=== PATIENT | male | born 1960 | race Caucasian/White ===

== ENCOUNTER 2017-12-22 23:15 | Observation (INO) | payer BC, OTHER ==
--- NOTE | 2017-12-22 23:26 | PDOC ---
History of Present Illness - General Stated Complaint: NUMBNESS/TINGLING SENSATION Time Seen by Provider: 12/22/17 23:25 - History of Present Illness Initial Comments: Eb Del Rio is a 57yo man with a PMH of DM, HTN, HLD, on lisinopril who presents today with acute onset of tongue and lip swelling. He reports that he did not notice any swelling when he went to bed, but he woke up at 11pm with swelling that prevented him from speaking normally. He denies any difficulty swallowing or breathing, though his and daughter both state that his neck appears swollen. He has been taking lisinopril for about 4 years without any difficulty. He recently started taking labetolol about 2 weeks ago but has no other new medications. He did not eat anything unusual today, and has not used any new soaps, lotions, detergents, or other products. He is allergic to bee stings but denies any recent stings. Past History - Past Medical History Allergies/Adverse Reactions: Allergies Allergy/AdvReac Type Severity Reaction Status Date / Time No Known Allergies Allergy Verified 12/22/17 23:30 Home Medications: Ambulatory Orders Atorvastatin Calcium 40 mg PO DAILY 09/20/11 Clonidine HCl 0.2 mg PO BID 09/20/11 Furosemide 20 mg PO DAILY PRN 12/23/17 Glipizide 5 mg PO BID 12/23/17 Labetalol HCl 300 mg PO BID MDD 600 12/23/17 Lisinopril 40 mg PO DAILY 12/23/17 Meloxicam 15 mg PO DAILY 12/23/17 Metformin HCl 850 mg PO BID 12/23/17 Metoprolol Succinate 200 mg PO DAILY 12/23/17 Sitagliptin Phosphate [Januvia] 100 mg PO DAILY 12/23/17 Cardiac Disorders: (cardiomyopathy) Diabetes: Yes HTN: Yes Hypercholesterolemia: Yes - Suicide/Smoking/Psychosocial Hx Smoking Status: No Smoking History: Unknown if ever smoked Number of Cigarettes Smoked Daily: 0 Hx Alcohol Use: No Review of Systems - Review of Systems Comments:: General: No fevers, no chills, no weight or appetite change, no malaise HEENT: See HPI CV: No chest pain, no palpitations, no LE edema Pulm: No SOB, no cough, no wheezing GI: No nausea or vomiting, no change in bowel habits, no melena : No frequency, no urgency, no dysuria Musc: No back pain, no joint swelling, no recent injury Skin: No rash, no lesions, no erythema Endo: No excessive thirst, no heat/cold intolerance Heme: No unusual bruising or bleeding, no swollen glands Neuro: No syncope, no numbness/tingling, no focal weakness Vasc: No claudication Psych: No recent change in mood, no SI or HI *Physical Exam - Physical Exam Comments: General: Comfortable, no acute distress HEENT: PERRL, EOMI, MMM. Voice muffled. Visible swelling to lower lips and tongue. No apparent difficulty with upper airway. Cards: RRR, no murmur appreciated Pulm: Comfortable on room air, clear to auscultation bilaterally Abd: Soft, nontender, nondistended Ext: Atraumatic. No LE edema. ROM intact. Strength 5/5 and equal bilaterally Vasc: Extremities WWP. Palpable radial and pedal pulses bilaterally Neuro: A&Ox3, CN grossly intact, normal speech, motor/sensory grossly intact and symmetric Psych: Mood appropriate to situation ED Treatment Course - LABORATORY CBC & Chemistry Diagram: 12/23/17 00:26 12/23/17 00:26 Medical Decision Making - Medical Decision Making 12/23/17 00:33 Eb Del Rio is a 57yo man with a PMH of HTN, HLD, DM who presents with acute onset of angioedema involving the tongue, lower lip, and likely neck. He does take lisinopril. No known exposures to any allergens today. - Epinephrine, solumedrol, famotidine, diphenhydramine ordered - CBC, BMP, coags, EKG, CXR ordered for admission - Will need admit to ICU for monitoring 12/23/17 01:38 - CBC, BMP, INR unremarkable - Speech improved slightly after receiving meds; less mumbling, easier to understand. No visible reduction in swelling. - Toradol and lidocaine patch given for chronic BLE and low back pain. Pt reports using TENS unit at home, but does not have available. - Spoke to medicine resident for sign out. Waiting for call back from ICU 12/23/17 02:15 - Discussed with ICU, OK to admit for monitoring of airway 12/23/17 04:45 - Patient seen by gen violet and ICU. Downgraded to telemetry observation per medicine team. Seen and discussed with Dr Tejada. *DC/Admit/Observation/Transfer Diagnosis at time of Disposition: Angioedema Qualifiers: Encounter type: initial encounter Qualified Code(s): T78.3XXA - Angioneurotic edema, initial encounter - Discharge Dispostion Condition at time of disposition: Fair Decision to Admit order: Yes - Referrals - Patient Instructions - Post Discharge Activity
[2017-12-22] MEDS ORDERED: FAMOTIDINE 20 MG/50 ML IVPB 20 MG/50 ML MG IVPB ONE (23:45)
--- NOTE | 2017-12-22 23:49 | PDOC ---
Attending Attestation - [facility] HPI: 12/23/17 02:31 The patient is a 57 year old male with a significant PMH of diabetes, hypertension hypercholesterolemia and cardiomyopathy who presents to the emergency department with tongue and lip swelling. The patient denies any new food or medications. She states that she has been on labetalol for about 1 month and has been on ruth inhibitors for several years. The patient denies any chest pain or shortness of breath. She denies any other symptoms. She denies any fever, chills, nausea, vomit, diarrhea, constipation or urinary symptoms. Shec denies any headache, dizziness, vision change, numbness, weakness, or tingling sensation. The patient denies any other complaints. PCP: Dr. Mccann - Physicial Exam PE: 12/23/17 02:31 GENERAL: Well developed, well nourished. Awake and alert. No acute distress. HEENT:(+)moderate swelling to lower lip , more prominent on right side. Sides of tongue swollen. Floor of mouth not involved . Normocephalic, atraumatic. PERRLA, EOMI. No conjunctival pallor. Sclera are non- icteric. Moist mucous membranes. Oropharynx is clear. NECK: Supple. Full ROM. No JVD. Carotid pulses 2+ and symmetric, without bruits. No thyromegaly. No lymphadenopathy. CARDIOVASCULAR: Regular rate and rhythm. No murmurs, rubs, or gallops. Distal pulses are 2+ and symmetric. PULMONARY: No evidence of respiratory distress. Lungs clear to auscultation bilaterally. No wheezing, rales or rhonchi. ABDOMINAL: Soft. Non-tender. Non-distended. No rebound or guarding. No organomegaly. Normoactive bowel sounds. MUSCULOSKELETAL Normal range of motion at all joints. No bony deformities or tenderness. No CVA tenderness. EXTREMITIES: No cyanosis. No clubbing. No edema. No calf tenderness. SKIN: Warm and dry. Normal capillary refill. No rashes. No jaundice. NEUROLOGICAL: Alert, awake, appropriate. Cranial nerves 2-12 intact. No deficits to light touch and temperature in face, upper extremities and lower extremities. No motor deficits in the in face, upper extremities and lower extremities. Normoreflexic in the upper and lower extremities. Normal speech. Toes are down- going bilaterally. Gait is normal without ataxia. PSYCHIATRIC: Cooperative. Good eye contact. Appropriate mood and affect. Documentation prepared by Orestes Dorman, acting as medical technologist microbiology for Jorge Alberto Tejada DO. <Orestes Dorman - Last Filed: 12/23/17 02:31> - Resident Resident Name: Geraldine Alicia - ED Attending Attestation I have performed the following: I have examined & evaluated the patient, The case was reviewed & discussed with the resident, I agree w/resident's findings & plan, Exceptions are as noted - Medical Decision Making 12/26/17 19:28 Pt was admitted for further evaluation and care <Jorge Alberto Tejada - Last Filed: 12/26/17 19:29>
[2017-12-22] MEDS ORDERED: methylPREDNISolone NA SUCC 125 MG/2 ML VIAL IVPB ONE (23:50)
[2017-12-22] MEDS ORDERED: EPINEPHrine 1:1,000 0.3 MG/0.3 ML SYR IM ONE (23:50)
[2017-12-23] MEDS ORDERED: FAMOTIDINE 20 MG/50 ML IVPB 20 MG/50 ML MG IVPB ONE (00:08)
[2017-12-23] MEDS ORDERED: methylPREDNISolone NA SUCC 40 MG/1 ML VIAL IVPUSH ONE (00:08)
[2017-12-23] MEDS ORDERED: methylPREDNISolone NA SUCC 125 MG/2 ML VIAL ONE (00:08)
[2017-12-23] MEDS ORDERED: EPINEPHrine 1:1,000 0.3 MG/0.3 ML SYR IM ONE (00:09)
[2017-12-23] MEDS ORDERED: EPINEPHrine/PF 1 MG/1 ML (1:1,000) AMPULE ONE (00:12)
[2017-12-23 00:44] LABS: BASO % 0.5 % (0-2.0); EOS % 1.5 % (0-4.5); HEMATOCRIT 43.3 % (35.4-49); HEMOGLOBIN 14.4 GM/dL (11.7-16.9); LYMPH % 18.1 % (8-40); MCH 28.3 pg (25.7-33.7); MCHC 33.3 g/dl (32.0-35.9); MEAN CELL VOLUME 85.2 fl (80-96); MEAN PLT VOLUME 9.3 fl (7.5-11.1); MONO % 6.3 % (3.8-10.2); NEUT % 73.6 % (42.8-82.8); PLATELET COUNT 197 K/MM3 (134-434); RBC 5.08 M/mm3 (4.00-5.60); RDW 14.6 % (11.9-15.9); WHITE BLOOD COUNT 8.2 K/mm3 (4.0-10.0)
[2017-12-23 01:08] LABS: ANION GAP 10 (8-16); BLOOD UREA NITROGEN 20 mg/dL (7-18); CALCIUM 8.8 mg/dL (8.5-10.1); CHLORIDE 104 mmol/L (98-107); CO2 25 mmol/L (21-32); CREATININE 1.2 mg/dL (0.7-1.3); GLUCOSE,RANDOM 124 mg/dL (74-106); POTASSIUM 4.3 mmol/L (3.5-5.1); SODIUM 139 mmol/L (136-145)
[2017-12-23 01:10] LABS: INR 1.1 (0.83-1.09); PROTHROMBIN TIME (PATIENT) 12.4 SEC (9.7-13.0)
[2017-12-23] MEDS ORDERED: KETOROLAC TROMETHAMINE 30 MG/1 ML VIAL IVPUSH ONE (01:14)
[2017-12-23] MEDS ORDERED: LIDOCAINE 5% TOPICAL PATCH TP ONE (01:15)
[2017-12-23] MEDS ORDERED: LIDOCAINE 5% TOPICAL PATCH ONE (01:25)
[2017-12-23] MEDS ORDERED: KETOROLAC TROMETHAMINE 30 MG/1 ML VIAL ONE (01:25)
--- NOTE | 2017-12-23 02:36 | HP ---
CHIEF COMPLAINT:swelling of tongue and lower lip PCP: HISTORY OF PRESENT ILLNESS: Patient is a 57 year old male with past medical history of DM, HTN, HLD, Thyroid CA (s/p partial thyroidectomy), presented with sudden onset severe swelling of the tongue and lower lip. Few hours ago, patient suddenly woke up from sleep due to generalized itching, and was noted to have swelling of the lower lip and tongue, accompanied by dysphagia and difficulty talking. In addition, the and daughter noted patient to have swelling of the neck. They immediately went to the ED where patient was managed with Diphenhydramine, Epinephrine, Famotidine and Solu-medrol. On interview, patient has vastly improved with less swelling of the lip and tongue, with no dysphagia and no difficulty talking. Patient denies SOB, chest, palpitations, abdominal pain. ER course was notable for: (1)Diphenhydramine, Epinephrine, Lidocaine patch, Famotidine, Solu-medrol given (2) (3) Recent Travel:denies any recent travel PAST MEDICAL HISTORY: DM HTN HLD Thyroid cancer (2005) PAST SURGICAL HISTORY: Partial thyroidectomy (2005) Pacemaker (2011) Open heart surgery for HOCM Lung surgery (2011) Aortic aneurysm repair (2003) Spinal surgery (1993, 2016) Social History: Smoking:previously 2 PPD x 44 years (quit 3 years ago) Alcohol:occasional EtOH drinker Drugs: denies illicit drug use Family History: Allergies No Known Allergies Allergy (Verified 12/22/17 23:30) HOME MEDICATIONS: Home Medications Medication Instructions Recorded Atorvastatin Calcium 40 mg PO DAILY 09/20/11 Clonidine HCl 0.2 mg PO BID 09/20/11 Disopyramide [Norpace] 150 mg PO BID 09/20/11 Metformin HCl [Metformin HCl ER] 500 mg PO BID 09/20/11 Metoprolol Succinate 50 mg PO AM 09/20/11 Metoprolol Succinate [Toprol XL] 25 mg PO HS 09/20/11 Pyridostigmine [Mestinon] 180 mg PO DAILY 09/20/11 Verapamil HCl ER [Calan Sr] 240 mg PO DAILY 09/20/11 REVIEW OF SYSTEMS CONSTITUTIONAL: Absent: fever, chills, diaphoresis, generalized weakness, malaise, loss of appetite, weight change HEENT: +difficulty swallowing, +tongue swelling Absent: rhinorrhea, nasal congestion, throat pain, throat swelling, ear pain, eye pain, visual changes CARDIOVASCULAR: Absent: chest pain, syncope, palpitations, irregular heart rate, lightheadedness , peripheral edema RESPIRATORY: Absent: cough, shortness of breath, dyspnea with exertion, orthopnea, wheezing, stridor, hemoptysis GASTROINTESTINAL: Absent: abdominal pain, abdominal distension, nausea, vomiting, diarrhea, constipation, melena, hematochezia GENITOURINARY: Absent: dysuria, frequency, urgency, hesitancy, hematuria, flank pain, genital pain MUSCULOSKELETAL: Absent: myalgia, arthralgia, joint swelling, back pain, neck pain SKIN: Absent: rash, itching, pallor HEMATOLOGIC/IMMUNOLOGIC: Absent: easy bleeding, easy bruising, lymphadenopathy, frequent infections ENDOCRINE: Absent: unexplained weight gain, unexplained weight loss, heat intolerance, cold intolerance NEUROLOGIC: Absent: headache, focal weakness or paresthesias, dizziness, unsteady gait, seizure, mental status changes, bladder or bowel incontinence PSYCHIATRIC: Absent: anxiety, depression, suicidal or homicidal ideation, hallucinations. PHYSICAL EXAMINATION Vital Signs - 24 hr 12/22/17 23:20 Temperature 98.9 F Pulse Rate 89 Respiratory 23 Rate Blood Pressure 149/96 O2 Sat by Pulse 100 Oximetry (%) GENERAL: Awake, alert, and fully oriented, in no acute distress HEAD: Normal with no signs of trauma. EYES: PERRLA, EOMI, sclera anicteric, conjunctiva clear. EARS, NOSE, THROAT: +swelling of lower lip, +swelling of tongue, oropharynx clear without exudates. Moist mucous membranes. NECK: Normal range of motion, supple without lymphadenopathy, JVD, or masses. LUNGS: Breath sounds equal, clear to auscultation bilaterally. HEART: Regular rate and rhythm, normal S1 and S2 without murmur, rub or gallop. ABDOMEN: Soft, nontender, not distended, normoactive bowel sounds. MUSCULOSKELETAL: Normal range of motion at all joints. No bony deformities or tenderness. No CVA tenderness. UPPER EXTREMITIES: 2+ pulses, warm, well-perfused. No cyanosis. No clubbing. No peripheral edema. LOWER EXTREMITIES: 2+ pulses, warm, well-perfused. No calf tenderness. + b/l peripheral edema. NEUROLOGICAL: Cranial nerves II-XII intact. Normal speech. Normal gait. PSYCHIATRIC: Cooperative. Good eye contact. Appropriate mood and affect. SKIN: Warm, dry, normal turgor, no rashes or lesions. Laboratory Results - last 24 hr 12/23/17 12/23/17 12/23/17 00: 00: 00:26 WBC 8.2 RBC 5.08 Hgb 14.4 Hct 43.3 MCV 85.2 MCH 28.3 MCHC 33.3 RDW 14.6 Plt Count 197 MPV 9.3 Absolute Neuts (auto) 6.1 Neutrophils % 73.6 Lymphocytes % 18.1 Monocytes % 6.3 Eosinophils % 1.5 D Basophils % 0.5 Nucleated RBC % 0 PT with INR 12.40 INR 1.10 H Sodium 139 Potassium 4.3 Chloride 104 Carbon Dioxide 25 Anion Gap 10 BUN 20 H Creatinine 1.2 Creat Clearance w eGFR > 60 Random Glucose 124 H D Calcium 8.8 CBC, BMP 12/23/17 00:26 12/23/17 00:26 ASSESSMENT/PLAN: Patient is a 57 year old male with past medical history of DM, HTN, HLD, Thyroid CA (s/p partial thyroidectomy), presented with sudden onset severe swelling of the tongue and lower lip. #Angioedema: After management with Diphenhydramine and solu-medrol, patient's swelling improved vastly. -IV solu-medrol 40 mg q8h started. -Diphenhydramine 25 mg q8 PRN ordered. -IV fluids started -Lisinopril and Meloxicam put on hold. #DM: chronic -Continue home medications #Hypertension: chronic -Discontinue Lisinopril -continue Labetalol -monitor BP #Hyperlipidemia: chronic -continue Atorvastatin 40 mg #FEN -IV Ns (0.9%) at 100ml/hr -electrolytes wnl, routine bmp monitoring -NPO for now, may resume diet in the AM if can swallow food #Prophylaxis -Heparin 5000 units sq tid #Disposition -admit to obs-tele -full code Visit type - Emergency Visit Emergency Visit: Yes ED Registration Date: 12/23/17 Care time: The patient presented to the Emergency Department on the above date and was hospitalized for further evaluation of their emergent condition. - New Patient This patient is new to me today: Yes Date on this admission: 12/23/17 - Critical Care Critical Care patient: No Hospitalist Screening - Colonoscopy Questionnaire Colonoscopy Questionnaire: Colonoscopy Questionnaire - Patient: 50 - 75 years old and never had a screening colonoscopy: Unknown History of colon or rectal polyps, or CA: Unknown History of IBD, Crohn's disease or UC: Unknown History of abdominal radiation therapy as a child: Unknown - Relative: 1 with colon or rectal CA, or polyps at age 60 or younger: Unknown Colon or rectal CA diagnosed at age 45 or younger: Unknown Multiple relatives with colon or rectal CA: Unknown - Outcome: Screening Result: Negative Screen
[2017-12-23] MEDS ORDERED: SODIUM CHLORIDE 1,000 ML IV SCH (02:45)
[2017-12-23] MEDS ORDERED: FUROSEMIDE 20 MG TABLET (FP) PO PRN (04:33)
--- NOTE | 2017-12-23 05:42 | PN ---
Teaching Attending Note Name of Resident: Lainey Momin ATTENDING PHYSICIAN STATEMENT I saw and evaluated the patient. Chart, data, imaging reviewed I reviewed the resident's note and discussed the case with the resident. I agree with the resident's findings and plan as documented. SUBJECTIVE: 57 year old male with past medical history of DM, HTN, HLD, Thyroid CA (s/p partial thyroidectomy), presented with sudden onset of swelling of the tongue and lower lip on 12/22 at night. In ER given Diphenhydramine, Epinephrine, Famotidine and Solu-medrol which greatly improved his symptoms. Denied problems with breathing. Recently started labetolol. OBJECTIVE: Last Vital Signs Temp Pulse Resp BP Pulse Ox 98.4 F 68 22 137/83 99 12/23/17 05:20 12/23/17 05:20 12/23/17 05:20 12/23/17 05:20 12/23/17 05:20 general -nad, nontoxic heent -at, nc, no swelling of tongue or lips appreciated neck -supple chest - no wheezing appreciated abd- soft, bs+ skin - no rashes Abnormal Lab Results 12/23/17 12/23/17 00:26 00:26 INR 1.10 H BUN 20 H Random Glucose 124 H D ASSESSMENT AND PLAN: #57yo man with what appeared to be angioedema of lower lip and tongue which is now resolved. Unclear what the causative factor is but high suspiscion for lisinopril as this medication group classically causes angioedema. Now VS stable and patient feels he is at his baseline. Pt stable for observation -tele/obs -avoid ACEi -counseled pt to d/c lisinopril -benadryl 25mg IV q8hrs, methylprednisone 40mg IVPB q8hrs -NPO for now -monitor VS closely -monitor airway -IV fluid hydration -dvt ppx
[2017-12-23] MEDS ORDERED: HEPARIN NA (PORCINE) 5,000 UNITS/ML 1ML VIAL ONE ×2 (05:53→14:08)
[2017-12-23] MEDS: HEPARIN NA (PORCINE) 5,000 UNITS/ML 1ML VIAL SQ SCH ×3 (06:01→21:14)
[2017-12-23 06:27] LABS: HEMATOCRIT 43.1 % (35.4-49); HEMOGLOBIN 14.5 GM/dL (11.7-16.9); MCH 28.8 pg (25.7-33.7); MCHC 33.5 g/dl (32.0-35.9); MEAN CELL VOLUME 85.9 fl (80-96); PLATELET COUNT 176 K/MM3 (134-434); RBC 5.02 M/mm3 (4.00-5.60); RDW 14.4 % (11.9-15.9); WHITE BLOOD COUNT 8.8 K/mm3 (4.0-10.0)
[2017-12-23 06:52] LABS: ANION GAP 9 (8-16); BLOOD UREA NITROGEN 22 mg/dL (7-18); CALCIUM 8.4 mg/dL (8.5-10.1); CHLORIDE 108 mmol/L (98-107); CO2 23 mmol/L (21-32); CREATININE 1.2 mg/dL (0.7-1.3); GLUCOSE,RANDOM 231 mg/dL (74-106); MAGNESIUM 1.9 mg/dL (1.8-2.4); POTASSIUM 5.3 mmol/L (3.5-5.1); SODIUM 140 mmol/L (136-145)
[2017-12-23 08:23] LABS: URINE APPEARANCE CLEAR; URINE BILIRUBIN NEGATIVE (<2.0 mg/dL); URINE COLOR LTYELLOW; URINE GLUCOSE (UA) 3+ (NEGATIVE); URINE KETONE NEGATIVE (NEGATIVE); URINE LEUK ESTERASE NEGATIVE (NEGATIVE); URINE NITRITE NEGATIVE (NEGATIVE); URINE PROTEIN NEGATIVE (NEGATIVE); URINE UROBILINOGEN NEGATIVE mg/dL (0.2-1.0)
--- NOTE | 2017-12-23 08:30 | EKG ---
Test Reason : Blood Pressure : / mmHG Vent. Rate : 072 BPM Atrial Rate : 072 BPM P-R Int : 108 ms QRS Dur : 176 ms QT Int : 500 ms P-R-T Axes : 036 -16 168 degrees QTc Int : 547 ms SINUS RHYTHM LEFT BUNDLE BRANCH BLOCK ABNORMAL ECG WHEN COMPARED WITH ECG OF 20-SEP-2011 10:14, SINUS RHYTHM HAS REPLACED ELECTRONIC VENTRICULAR PACEMAKER Confirmed by PRINCE FRANCO MD ([id number]) on 12/23/2017 8:30:34 AM Referred By: Confirmed By:PRINCE FRANCO MD
[2017-12-23] MEDS ORDERED: PT OWN MED DRAWER 7, Y5N ONE (08:37)
[2017-12-23] MEDS: glipiZIDE 5 MG TABLET (FP) PO SCH ×2 (08:40→17:05)
[2017-12-23] MEDS: sitaGLIPtin PHOSPHATE 100 MG TABLET (FP) PO SCH (08:40)
--- NOTE | 2017-12-23 09:20 | CON.CARD ---
Consult Consult Specialty:: cardiology Reason for Consultation:: HTN; hx HOCM - History of Present Illness Chief Complaint: Pt is presently A&Ox3; no palpitations, dizziness, chest pain. No longer feels facial discomfort. History of Present Illness: Eb Del Rio is a 57yo man with a PMH of DM, HCOM, s/p ICD, HTN, systolic/ diastolic CHF (mildly reduced LVEF) HLD, on lisinopril who presents today with acute onset of tongue and lip swelling. He reports that he did not notice any swelling when he went to bed, but he woke up at 11pm with swelling that prevented him from speaking normally. He denies any difficulty swallowing or breathing, though his and daughter both state that his neck appears swollen. He has been taking lisinopril for about 4 years without any difficulty. He recently started taking labetolol about 2 weeks ago but has no other new medications. He did not eat anything unusual today, and has not used any new soaps, lotions, detergents, or other products. He is allergic to bee stings but denies any recent stings. Surgeries: ICD "scraping" of heart (?septum) in relation to HOCM. - History Source History Provided By: Patient, Family Member, Medical Record Limitations to Obtaining History: No Limitations - Past Medical History Cardio/Vascular: Yes: CHF (mild systolic; diastolic) Pulmonary: Yes: Sleep Apnea ( says he snores excessively; ) Psych: Yes: Anxiety - Past Surgical History Past Surgical History: Yes: AICD Additional Surgical History: implant in back for lower back, leg pain/ "neuropathy". ?"shaving" (?of LV septum) for HOCM - Alcohol/Substance Use Hx Alcohol Use: No - Smoking History Smoking history: Former smoker Have you smoked in the past 12 months: No Aproximately how many cigarettes per day: 0 - Social History Usual Living Arrangement: With Spouse Home Medications - Allergies Allergies/Adverse Reactions: Allergies Allergy/AdvReac Type Severity Reaction Status Date / Time lisinopril Allergy Verified 12/23/17 05:14 - Home Medications Home Medications: Ambulatory Orders Atorvastatin Calcium 40 mg PO DAILY 09/20/11 Clonidine HCl 0.2 mg PO BID 09/20/11 Furosemide 20 mg PO DAILY PRN 12/23/17 Glipizide 5 mg PO BID 12/23/17 Labetalol HCl 300 mg PO BID MDD 600 12/23/17 Lisinopril 40 mg PO DAILY 12/23/17 Meloxicam 15 mg PO DAILY 12/23/17 Metformin HCl 850 mg PO BID 12/23/17 Metoprolol Succinate 200 mg PO DAILY 12/23/17 Sitagliptin Phosphate [Januvia] 100 mg PO DAILY 12/23/17 Family Disease History - Family Disease History Family History: Denies Vital Signs: Vital Signs Temperature 98.0 F 12/23/17 07:39 Pulse Rate 71 12/23/17 07:39 Respiratory Rate 16 12/23/17 07:39 Blood Pressure 179/100 12/23/17 07:39 O2 Sat by Pulse Oximetry (%) 96 12/23/17 07:39 - Other Data Labs, Other Data: CBC, BMP 12/23/17 06:13 12/23/17 06:13 INR, PTT INR 1.10 (0.83-1.09) H 12/23/17 00:26 Troponin, BNP 12/23/17 06:13 Troponin I 0.07 H D Troponin, BNP 12/23/17 06:13 Troponin I 0.07 H D Problem List - Problems (1) HOCM (hypertrophic obstructive cardiomyopathy) Code(s): I42.1 - OBSTRUCTIVE HYPERTROPHIC CARDIOMYOPATHY (2) Angioedema Assessment/Plan: ? related to ACEI (though pt has been on the medication for 4 years, cases have been documented with long-term use). ? related to labetalol, though episode appears to have subsided since stopping ACEI. This medication was apparently started only 2 weeks ago. Agree with stopping ACEI. Follow pt carefully for recurrence (which may occur even several months after stopping the agent). Send to management assistant if pt has frequent recurrences; also, consider changing labetalol to another beta tristan should etiology of angioedema be unclear. Code(s): T78.3XXA - ANGIONEUROTIC EDEMA, INITIAL ENCOUNTER Qualifiers: Encounter type: initial encounter Qualified Code(s): T78.3XXA - Angioneurotic edema, initial encounter (3) HTN (hypertension) Assessment/Plan: Pt to receive labetalol and clonidine today (says he takes 0.4 mg tid of clonidine). Currently, ACEI discontinued for presumed cause of angioedema. Consider losarrtan if a 3rd class of antihypertensive is needed, particularly if LVEF is reduced. Code(s): I10 - ESSENTIAL (PRIMARY) HYPERTENSION (4) Hyperlipidemia Assessment/Plan: f/u lipid panel Code(s): E78.5 - HYPERLIPIDEMIA, UNSPECIFIED (5) Diabetes Code(s): E11.9 - TYPE 2 DIABETES MELLITUS WITHOUT COMPLICATIONS
[2017-12-23] MEDS: cloNIDine HCL 0.1 MG TABLET PO SCH ×2 (09:22→21:12)
[2017-12-23] MEDS: LABETALOL HCL 200 MG, LABETALOL HCL 100 MG PO SCH ×2 (09:23→21:15)
[2017-12-23] MEDS ORDERED: predniSONE 20 MG TABLET (UD) ONE (09:26)
[2017-12-23] MEDS ORDERED: LABETALOL HCL 100 MG TABLET (FP) PO SCH (10:00)
[2017-12-23] MEDS ORDERED: methylPREDNISolone NA SUCC 40 MG/1 ML VIAL IVPB SCH (10:00)
[2017-12-23] MEDS ORDERED: predniSONE 20 MG TABLET (UD) PO SCH (10:00)
[2017-12-23] MEDS ORDERED: ACETAMINOPHEN 325 MG TABLET (FP) ONE (12:08)
[2017-12-23] MEDS: ACETAMINOPHEN 325 MG TABLET (FP) PO PRN ×2 (12:08→18:00)
--- NOTE | 2017-12-23 12:20 | ECHO ---
Name: ANJEL HUFFMAN Exam:Adult Echocardiogram Study Date: 12/23/2017 10:47 AM Age: 57 yrs Reason For Study: CARDIAC HX; SHORTNESS MMode/2D Measurements & Calculations IVSd: 1.1 cm Ao root diam: 3.5 cm LVIDd: 5.3 cm LA dimension: 4.0 cm LVIDs: 4.0 cm LVPWd: 1.1 cm EDV(Teich): 136.7 ml ESV(Teich): 69.3 ml Doppler Measurements & Calculations MV E max snehal: 62.2 cm/sec Ao V2 max: 179.2 cm/sec MV A max snehal: 106.1 cm/sec Ao max P.8 mmHg MV E/A: 0.59 Ao V2 mean: 127.8 cm/sec Ao mean P.3 mmHg Ao V2 VTI: 38.2 cm AI P1/2t: 358.5 msec AI max snehal: 294.5 cm/sec LV V1 max P.4 mmHg AI max P.9 mmHg LV V1 mean P.3 mmHg AI dec slope: 240.6 cm/sec2 LV V1 max: 77.1 cm/sec LV V1 mean: 51.8 cm/sec LV V1 VTI: 14.4 cm MR max snehal: 286.6 cm/sec TR max snehal: 263.3 cm/sec MR max P.8 mmHg TR max P.7 mmHg Med Peak E' Snehal: 3.3 cm/sec Med E/e': 18.8 Lat Peak E' Snehal: 4.0 cm/sec Lat E/e': 15.6 Procedure The study was technically difficult with many images being suboptimal in quality. Left Ventricle The left ventricle is mildly dilated. Left ventricular systolic function is mildly reduced. Regional wall motion abnormalities cannot be excluded due to limited visualization. Right Ventricle There is a pacemaker lead in the right ventricle. Atria The left atrium is mildly dilated. Mitral Valve There is mild mitral annular calcification. There is no mitral valve stenosis. There is mild mitral regurgitation. Tricuspid Valve The tricuspid valve is normal in structure and function. There is mild tricuspid regurgitation. Aortic Valve The aortic valve opens well. No hemodynamically significant valvular aortic stenosis. Mild aortic regurgitation. Pulmonic Valve The pulmonic valve is not well seen, but is grossly normal. There is no pulmonic valvular stenosis. Great Vessels The aortic root is normal size. Pericardium/Pleura There is no pericardial effusion. Interpretation Summary The study was technically difficult with many images being suboptimal in quality. Regional wall motion abnormalities cannot be excluded due to limited visualization. Left ventricular systolic function is mildly reduced. There is a pacemaker lead in the right ventricle. The left atrium is mildly dilated. There is mild mitral annular calcification. There is mild mitral regurgitation. Mild aortic regurgitation. There is no pericardial effusion. MD Nigel Chong 12/23/2017 12:20 PM
--- NOTE | 2017-12-23 15:46 | PN ---
Physical Exam: SUBJECTIVE: Patient seen and examined a few times during the day and also I also spoke to patient's . 0745: patient reports feeling well, and ate breakfast even though he was NPO ( drank coffee and ate soft wheat bread). Reports no difficulty breathing, no difficulty swallowing. Denies shortness of breath, comfortable at rest. 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 Vital Signs Period Temp Pulse Resp BP Sys/Aranda Pulse Ox Last 24 Hr 98.0 F-98.9 F 68-89 16-23 137-179/83-100 95-100 GENERAL: The patient is awake, alert, and fully oriented, in no acute distress. HEAD: Normal with no signs of trauma. EYES: PERRL, extraocular movements intact, sclera anicteric, conjunctiva clear. No ptosis. ENT: Ears normal, nares patent, oropharynx clear without exudates, moist mucous membranes. NECK: Trachea midline, full range of motion, supple. LUNGS: Breath sounds equal, clear to auscultation bilaterally, no wheezes HEART: Regular rate and rhythm ABDOMEN: Soft, nontender, nondistended, normoactive bowel sounds, EXTREMITIES: +1 lower ext pitting edema NEUROLOGICAL: Normal speech, gait not observed. PSYCH: Normal mood, normal affect. SKIN: Warm, dry, normal turgor, no rashes or lesions noted Laboratory Results - last 24 hr 12/23/17 12/23/17 12/23/17 00:26 00:26 00:26 WBC 8.2 RBC 5.08 Hgb 14.4 Hct 43.3 MCV 85.2 MCH 28.3 MCHC 33.3 RDW 14.6 Plt Count 197 MPV 9.3 Absolute Neuts (auto) 6.1 Neutrophils % 73.6 Lymphocytes % 18.1 Monocytes % 6.3 Eosinophils % 1.5 D Basophils % 0.5 Nucleated RBC % 0 PT with INR 12.40 INR 1.10 H Sodium 139 Potassium 4.3 Chloride 104 Carbon Dioxide 25 Anion Gap 10 BUN 20 H Creatinine 1.2 Creat Clearance w eGFR > 60 POC Glucometer Random Glucose 124 H D Calcium 8.8 Phosphorus Magnesium Creatine Kinase Creatine Kinase Index CK-MB (CK-2) Troponin I Urine Color Urine Appearance Urine pH Ur Specific [place] Urine Protein Urine Glucose (UA) Urine Ketones Urine Blood Urine Nitrite Urine Bilirubin Urine Urobilinogen Ur Leukocyte Esterase 12/23/17 12/23/17 12/23/17 06:13 06:13 07:48 WBC 8.8 RBC 5.02 Hgb 14.5 Hct 43.1 MCV 85.9 MCH 28.8 MCHC 33.5 RDW 14.4 Plt Count 176 MPV 9.0 Absolute Neuts (auto) Neutrophils % Lymphocytes % Monocytes % Eosinophils % Basophils % Nucleated RBC % PT with INR INR Sodium 140 Potassium 5.3 H D Chloride 108 H Carbon Dioxide 23 Anion Gap 9 BUN 22 H Creatinine 1.2 Creat Clearance w eGFR > 60 POC Glucometer Random Glucose 231 H D Calcium 8.4 L Phosphorus 3.0 Magnesium 1.9 Creatine Kinase 632 H Creatine Kinase Index 3.8 CK-MB (CK-2) 24.32 H Troponin I 0.07 H D Urine Color Ltyellow Urine Appearance Clear Urine pH 5.0 Ur Specific [place] 1.007 Urine Protein Negative Urine Glucose (UA) 3+ H Urine Ketones Negative Urine Blood Negative Urine Nitrite Negative Urine Bilirubin Negative Urine Urobilinogen Negative Ur Leukocyte Esterase Negative 12/23/17 07:50 WBC RBC Hgb Hct MCV MCH MCHC RDW Plt Count MPV Absolute Neuts (auto) Neutrophils % Lymphocytes % Monocytes % Eosinophils % Basophils % Nucleated RBC % PT with INR INR Sodium Potassium Chloride Carbon Dioxide Anion Gap BUN Creatinine Creat Clearance w eGFR POC Glucometer [phone] Random Glucose Calcium Phosphorus Magnesium Creatine Kinase Creatine Kinase Index CK-MB (CK-2) Troponin I Urine Color Urine Appearance Urine pH Ur Specific [place] Urine Protein Urine Glucose (UA) Urine Ketones Urine Blood Urine Nitrite Urine Bilirubin Urine Urobilinogen Ur Leukocyte Esterase Active Medications Generic Name Dose Route Start Last Admin Trade Name Freq PRN Reason Stop Dose Admin Acetaminophen 650 mg 12/23/17 04:39 12/23/17 12:08 Tylenol - PO 650 mg Q6H PRN Administration Fever Or Pain Atorvastatin Calcium 40 mg 12/23/17 22:00 Lipitor - PO HS KAILEE Clonidine 0.2 mg 12/23/17 10:00 12/23/17 09:22 Catapres - PO 0.2 mg BID KAILEE Administration Diphenhydramine HCl 25 mg 12/23/17 05:12 12/23/17 05:58 Benadryl Injection - IVPB 25 mg Q8H-IV PRN Administration FOR ITCHING Furosemide 20 mg 12/23/17 04:33 Lasix - PO DAILY PRN Edema Glipizide 5 mg 12/23/17 07:00 12/23/17 08:40 Glucotrol - PO 5 mg BIDAC KAILEE Administration Heparin Sodium (Porcine) 5,000 unit 12/23/17 06:00 12/23/17 14:14 Heparin - SQ 5,000 unit TID KAILEE Administration Sodium Chloride 1,000 mls @ 100 mls/hr 12/23/17 02:45 12/23/17 03:00 Normal Saline - IV 100 mls/hr ASDIR KAILEE Administration Labetalol HCl 200 mg/ 300 mg 12/23/17 10:00 12/23/17 09:23 Labetalol HCl 100 mg PO 300 mg BID KAILEE Administration Metformin HCl 850 mg 12/23/17 07:00 12/23/17 08:40 Glucophage - PO 850 mg BIDAC KAILEE Administration Miscellaneous 1 each 12/23/17 22:00 Lidoderm Patch Removal MC DAILY@2200 KAILEE Prednisone 40 mg 12/23/17 10:00 12/23/17 09:23 Deltasone - PO 40 mg DAILY KAILEE Administration Sitagliptin Phosphate 100 mg 12/23/17 07:00 12/23/17 08:40 Januvia - PO 100 mg DAILY@0700 KAILEE Administration ASSESSMENT/PLAN: Patient is a 57 year old male with a significant past medical history of diabetes, hypertension, HLD, thyroid cancer with a partial thyroidectomy (2005), pacemaker (2011), open heart surgery for HOCM, lung surgery 2011,aortic aneurysm repair (2003), spinal surgery (1993, 2016). Patient presents to the ED today for evaluation of sudden onset of swelling of the tongue, lower lip and difficulty breathing. In the ED he was given benadryl , epi, pepcid and solumedrol which resolved his symptoms. This morning felt well and denied any further symptoms. Anaphylaxis: Angioedema likely secondary to Lisinopril: Patient has been on Lisinopril for numerous years, however angioedema can occur even after years of stable therapy. Lisinopril has been discontinued during hospitalization. On admission , patient was given high dose of IV steriods and antihistamines in the ED. Will convert to prednisone 40-mg BID, then taper off. His symptoms are now resolved. Cardiology: Hypertension/HLD/Open Heart surgery/pacemaker: Echo LV systolic fx is mildly reduced. Pacemaker lead in the right ventricle, left atrium is mildly dilated. there is mild mitral annular calcifications. mild mitral regurg. mild aortic regurg.,no pericardial effusion. BP elevated this a.m., extensive cardiac history with risk factors. 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 Cardiology consulted. Hypertension: on Labetalol 300mg bid. fen tolerating PO monitor electrolytes low salt diet prophy ambulation protonix full code Visit type - Emergency Visit Emergency Visit: Yes ED Registration Date: 12/23/17 Care time: The patient presented to the Emergency Department on the above date and was hospitalized for further evaluation of their emergent condition. - New Patient This patient is new to me today: No - Critical Care Critical Care patient: No - Discharge Referral Referred to [facility] No
[2017-12-23] MEDS ORDERED: diphenhydrAMINE HCL 25 MG CAPSULE (FP) PO PRN (16:04)
[2017-12-23 16:23] VITALS: BMI 41.3
[2017-12-23] MEDS ORDERED: LABETALOL HCL 100 MG TABLET (FP) ONE (21:05)
[2017-12-23] MEDS ORDERED: LABETALOL HCL 200 MG TABLET (FP) ONE (21:06)
[2017-12-23] MEDS: predniSONE 20 MG TABLET (UD) PO SCH (21:13)
[2017-12-23] MEDS: LIDOCAINE PATCH REMOVAL MC SCH (21:14)
[2017-12-23] MEDS: ATORVASTATIN CA 40 MG TABLET (FP) PO SCH (21:14)
[2017-12-24] MEDS: HEPARIN NA (PORCINE) 5,000 UNITS/ML 1ML VIAL SQ SCH ×3 (06:22→21:27)
[2017-12-24] MEDS: glipiZIDE 5 MG TABLET (FP) PO SCH ×2 (06:22→17:36)
[2017-12-24] MEDS: sitaGLIPtin PHOSPHATE 100 MG TABLET (FP) PO SCH (06:22)
[2017-12-24] MEDS ORDERED: LABETALOL HCL 200 MG TABLET (FP) ONE ×2 (08:22→21:24)
[2017-12-24] MEDS ORDERED: LABETALOL HCL 100 MG TABLET (FP) ONE ×2 (08:22→21:24)
[2017-12-24 09:08] LABS: BASO % 0.3 % (0-2.0); HEMOGLOBIN 13.4 GM/dL (11.7-16.9); LYMPH % 4.9 % (8-40); MCH 28.8 pg (25.7-33.7); MCHC 33.5 g/dl (32.0-35.9); MEAN CELL VOLUME 85.9 fl (80-96); MONO % 2.7 % (3.8-10.2); NEUT % 92.1 % (42.8-82.8); PLATELET COUNT 199 K/MM3 (134-434); RBC 4.66 M/mm3 (4.00-5.60); RDW 14.3 % (11.9-15.9); WHITE BLOOD COUNT 12.9 K/mm3 (4.0-10.0)
[2017-12-24] MEDS: LABETALOL HCL 200 MG, LABETALOL HCL 100 MG PO SCH ×2 (09:10→21:26)
[2017-12-24] MEDS: predniSONE 20 MG TABLET (UD) PO SCH (09:10)
[2017-12-24] MEDS: PANTOPRAZOLE 40 MG TABLET (FP) PO SCH (09:11)
[2017-12-24] MEDS: cloNIDine HCL 0.1 MG TABLET PO SCH ×2 (09:11→21:25)
[2017-12-24 09:39] LABS: ALBUMIN 3.7 g/dl (3.4-5.0); ANION GAP 10 (8-16); BILIRUBIN,TOTAL 0.3 mg/dL (0.2-1.0); BLOOD UREA NITROGEN 22 mg/dL (7-18); CHLORIDE 107 mmol/L (98-107); CO2 22 mmol/L (21-32); CREATININE 1.1 mg/dL (0.7-1.3); GLUCOSE,RANDOM 195 mg/dL (74-106); POTASSIUM 4.9 mmol/L (3.5-5.1); SGOT/AST 17 U/L (15-37); SGPT/ALT 31 U/L (12-78); SODIUM 139 mmol/L (136-145); TOT PROT 7.2 g/dl (6.4-8.2)
[2017-12-24 09:40] LABS: ALK PHOS 75 U/L (45-117)
[2017-12-24 11:15] LABS: ACANTHOCYTES 0; ANISOCYTOSIS 0; HELMET CELLS 0; HOWELL-JOLLY BODIES 0; MACROCYTOSIS 0; OVALOCYTE 0; ROULEAU 0; SICKELED CELLS 0; TARGET CELLS 0; TEAR DROP CELLS 0; TOXIC GRANULATION 0
[2017-12-24] MEDS ORDERED: LOSARTAN POTASSIUM 50 MG TABLET (FP) PO SCH (11:15)
[2017-12-24 11:26] LABS: CHOLESTEROL 162 mg/dL (50-200); TRIGLYCERIDES 175 mg/dL (35-160)
[2017-12-24 11:35] LABS: HDL CHOLESTEROL 42 mg/dL (40-60)
--- NOTE | 2017-12-24 16:30 | DS ---
Physical Exam: SUBJECTIVE: Patient seen and examined OBJECTIVE: Vital Signs Period Temp Pulse Resp BP Sys/Aranda Pulse Ox Last 24 Hr 97.9 F-98.4 F 73-85 18-20 148-164/90-103 96-97 PHYSICAL EXAM GENERAL: The patient is awake, alert, and fully oriented, in no acute distress. HEAD: Normal with no signs of trauma. EYES: PERRL, extraocular movements intact, sclera anicteric, conjunctiva clear. ENT: Ears normal, nares patent, oropharynx clear without exudates, moist mucous membranes. NECK: Trachea midline, full range of motion, supple. LUNGS: Breath sounds equal, clear to auscultation bilaterally, no wheezes, no crackles, no accessory muscle use. HEART: Regular rate and rhythm, S1, S2 without murmur, rub or gallop. ABDOMEN: Soft, nontender, nondistended, normoactive bowel sounds, no guarding, no rebound, no hepatosplenomegaly, no masses. EXTREMITIES: 2+ pulses, warm, well-perfused, no edema. NEUROLOGICAL: Cranial nerves II through XII grossly intact. Normal speech, gait not observed. PSYCH: Normal mood, normal affect. SKIN: Warm, dry, normal turgor, no rashes or lesions noted. LABS Laboratory Results - last 24 hr 12/23/17 12/23/17 12/23/17 16:00 17:03 21:12 WBC RBC Hgb Hct MCV MCH MCHC RDW Plt Count MPV Absolute Neuts (auto) Neutrophils % Neutrophils % (Manual) Band Neutrophils % Lymphocytes % Lymphocytes % (Manual) Monocytes % Monocytes % (Manual) Eosinophils % Eosinophils % (Manual) Basophils % Basophils % (Manual) Myelocytes % (Man) Promyelocytes % (Man) Blast Cells % (Manual) Nucleated RBC % Metamyelocytes Hypochromia Toxic Granulation Dohle Bodies Polychromasia Poikilocytosis Basophilic Stippling Anisocytosis Microcytosis Macrocytosis Spherocytes Sickle Cells Target Cells Tear Drop Cells Ovalocytes Stomatocytes Helmet Cells [place] Bodies [place] Rings [place] Cells Acanthocytes (Spur) Rouleaux Fragmented RBCs Schistocytes Sodium Potassium Chloride Carbon Dioxide Anion Gap BUN Creatinine Creat Clearance w eGFR POC Glucometer 200 229 Random Glucose Calcium Magnesium Total Bilirubin AST ALT Alkaline Phosphatase Troponin I 0.04 D Total Protein Albumin Triglycerides Cholesterol Total LDL Cholesterol HDL Cholesterol TSH 08/11/18 08/11/18 08/11/18 05:28 08:40 08:40 WBC 12.9 H RBC 4.66 Hgb 13.4 Hct 40.0 MCV 85.9 MCH 28.8 MCHC 33.5 RDW 14.3 Plt Count 199 MPV 9.0 Absolute Neuts (auto) 11.9 Neutrophils % 92.1 H D Neutrophils % (Manual) 93.9 H Band Neutrophils % 0.0 Lymphocytes % 4.9 L D Lymphocytes % (Manual) 4.1 L Monocytes % 2.7 L Monocytes % (Manual) 2 L Eosinophils % 0.0 D Eosinophils % (Manual) 0.0 Basophils % 0.3 Basophils % (Manual) 0.0 Myelocytes % (Man) 0 Promyelocytes % (Man) 0 Blast Cells % (Manual) 0 Nucleated RBC % 0 Metamyelocytes 0 Hypochromia 0 Toxic Granulation 0 Dohle Bodies 0 Polychromasia 0 Poikilocytosis 0 Basophilic Stippling 0 Anisocytosis 0 Microcytosis 0 Macrocytosis 0 Spherocytes 0 Sickle Cells 0 Target Cells 0 Tear Drop Cells 0 Ovalocytes 0 Stomatocytes 0 Helmet Cells 0 [place] Bodies 0 [place] Rings 0 Maria R Cells 0 Acanthocytes (Spur) 0 Rouleaux 0 Fragmented RBCs 0 Schistocytes 0 Sodium 139 Potassium 4.9 Chloride 107 Carbon Dioxide 22 Anion Gap 10 BUN 22 H Creatinine 1.1 Creat Clearance w eGFR > 60 POC Glucometer 188 Random Glucose 195 H Calcium 9.0 Magnesium 2.0 Total Bilirubin 0.3 AST 17 ALT 31 D Alkaline Phosphatase 75 Troponin I Total Protein 7.2 Albumin 3.7 Triglycerides 175 H Cholesterol 162 Total LDL Cholesterol 87 HDL Cholesterol 42 TSH 0.65 12/24/17 12/24/17 08:40 11:13 WBC RBC Hgb Hct MCV MCH MCHC RDW Plt Count MPV Absolute Neuts (auto) Neutrophils % Neutrophils % (Manual) Band Neutrophils % Lymphocytes % Lymphocytes % (Manual) Monocytes % Monocytes % (Manual) Eosinophils % Eosinophils % (Manual) Basophils % Basophils % (Manual) Myelocytes % (Man) Promyelocytes % (Man) Blast Cells % (Manual) Nucleated RBC % Metamyelocytes Hypochromia Toxic Granulation Dohle Bodies Polychromasia Poikilocytosis Basophilic Stippling Anisocytosis Microcytosis Macrocytosis Spherocytes Sickle Cells Target Cells Tear Drop Cells Ovalocytes Stomatocytes Helmet Cells [place] Bodies [place] Rings Maria R Cells Acanthocytes (Spur) Rouleaux Fragmented RBCs Schistocytes Sodium Potassium Chloride Carbon Dioxide Anion Gap BUN Creatinine Creat Clearance w eGFR POC Glucometer 163 Random Glucose Calcium Magnesium Total Bilirubin AST ALT Alkaline Phosphatase Troponin I Total Protein Albumin Triglycerides Cancelled Cholesterol Cancelled Total LDL Cholesterol Cancelled HDL Cholesterol Cancelled TSH Cancelled HOSPITAL COURSE: Date of Admission:12/23/17 Date of Discharge: 12/24/17 Discharge Summary Reason For Visit: ANGIOEDEMA Current Active Problems Angioedema (Acute) Diabetes (Acute) HOCM (hypertrophic obstructive cardiomyopathy) (Acute) HTN (hypertension) (Acute) Hyperlipidemia (Acute) Condition: Guarded - Instructions Diet, Activity, Other Instructions: Mr. Del [place]: You were placed under observation at [facility] for angioedema , which we believe is from Lisinopril. Please stop taking the Lisinopril We also noted that your were hypertensive during hospitalization and have adjusted your cardiac medications. Andioedema: Stop taking lisinopril. We believe Lisinopril caused this severe reaction. We treated you with steroids and will discharge you on a steroid taper as follows: Prednisone 40mg tomorrow 12/25/2017 - no need to take any more today as you received a dose this morning. Prednisone 30mg on 12/26/2017 once per day Prednisone 20mg on 12/27/2017 once per day Prednisone 10mg on 12/28/2017 once per day - THIS IS YOUR LAST DOSE Please come to the ER if your symptoms return. Hypertension: We started you on Cozaar 50mg (Losartan) which is once per day. Continue taking Clonidine 0.4mg three times per day (morning, afternoon and at bedtime). Continue the Labetelol as you are doing at home. Please follow up with your assessment director. Please call me with any questions that you may have Sweetie Chatterjee NP [phone] [facility] @ [facility] Referrals: Heber Mccann [Primary Care Provider] - Disposition: HOME - Home Medications Comprehensive Discharge Medication List: Ambulatory Orders Atorvastatin Calcium 40 mg PO DAILY 09/20/11 Clonidine HCl 0.2 mg PO BID 09/20/11 Furosemide 20 mg PO DAILY PRN 12/23/17 Glipizide 5 mg PO BID 12/23/17 Labetalol HCl 300 mg PO BID MDD 600 12/23/17 Lisinopril 40 mg PO DAILY 12/23/17 Meloxicam 15 mg PO DAILY 12/23/17 Metformin HCl 850 mg PO BID 12/23/17 Metoprolol Succinate 200 mg PO DAILY 12/23/17 Sitagliptin Phosphate [Januvia] 100 mg PO DAILY 12/23/17
[2017-12-24] MEDS ORDERED: FUROSEMIDE 40 MG TABLET (FP) PO ONE (17:30)
[2017-12-24] MEDS: SPIRONOLACTONE 25 MG TABLET (FP) PO SCH (17:46)
[2017-12-24] MEDS: ATORVASTATIN CA 40 MG TABLET (FP) PO SCH (21:25)
[2017-12-24] MEDS: ACETAMINOPHEN 325 MG TABLET (FP) PO PRN (21:26)
[2017-12-24] MEDS ORDERED: cloNIDine HCL 0.1 MG TABLET PO SCH (22:00)
--- NOTE | 2017-12-24 22:08 | PN ---
Physical Exam: SUBJECTIVE: Patient seen and examined at the bedside. feels better today, denies shortness of breath or swallowing difficulty. States he feels improved. OBJECTIVE: pt was up for dc today, however, BP remains elevated Vital Signs Period Temp Pulse Resp BP Sys/Aranda Pulse Ox Last 24 Hr 97.9 F-98.1 F 73-84 20-20 159-199/93-109 96 GENERAL: The patient is awake, alert, and fully oriented, in no acute distress. HEAD: Normal with no signs of trauma. EYES: PERRL, extraocular movements intact, sclera anicteric, conjunctiva clear. No ptosis. ENT: Ears normal, nares patent, oropharynx clear without exudates, moist mucous membranes. NECK: Trachea midline, full range of motion, supple. LUNGS: Breath sounds equal, clear to auscultation bilaterally, no wheezes HEART: Regular rate and rhythm ABDOMEN: Soft, nontender, nondistended, normoactive bowel sounds, EXTREMITIES: +1 lower ext pitting edema NEUROLOGICAL: Normal speech, gait not observed. PSYCH: Normal mood, normal affect. SKIN: Warm, dry, normal turgor, no rashes or lesions noted Laboratory Results - last 24 hr 12/24/17 12/24/17 12/24/17 05:28 08:40 08:40 WBC 12.9 H RBC 4.66 Hgb 13.4 Hct 40.0 MCV 85.9 MCH 28.8 MCHC 33.5 RDW 14.3 Plt Count 199 MPV 9.0 Absolute Neuts (auto) 11.9 Neutrophils % 92.1 H D Neutrophils % (Manual) 93.9 H Band Neutrophils % 0.0 Lymphocytes % 4.9 L D Lymphocytes % (Manual) 4.1 L Monocytes % 2.7 L Monocytes % (Manual) 2 L Eosinophils % 0.0 D Eosinophils % (Manual) 0.0 Basophils % 0.3 Basophils % (Manual) 0.0 Myelocytes % (Man) 0 Promyelocytes % (Man) 0 Blast Cells % (Manual) 0 Nucleated RBC % 0 Metamyelocytes 0 Hypochromia 0 Toxic Granulation 0 Dohle Bodies 0 Polychromasia 0 Poikilocytosis 0 Basophilic Stippling 0 Anisocytosis 0 Microcytosis 0 Macrocytosis 0 Spherocytes 0 Sickle Cells 0 Target Cells 0 Tear Drop Cells 0 Ovalocytes 0 Stomatocytes 0 Helmet Cells 0 [place] Bodies 0 [place] Rings 0 [place] Cells 0 Acanthocytes (Spur) 0 Rouleaux 0 Fragmented RBCs 0 Schistocytes 0 Sodium 139 Potassium 4.9 Chloride 107 Carbon Dioxide 22 Anion Gap 10 BUN 22 H Creatinine 1.1 Creat Clearance w eGFR > 60 POC Glucometer 188 Random Glucose 195 H Calcium 9.0 Magnesium 2.0 Total Bilirubin 0.3 AST 17 ALT 31 D Alkaline Phosphatase 75 Total Protein 7.2 Albumin 3.7 Triglycerides 175 H Cholesterol 162 Total LDL Cholesterol 87 HDL Cholesterol 42 TSH 0.65 12/24/17 12/24/17 12/24/17 08:40 11:13 17:29 WBC RBC Hgb Hct MCV MCH MCHC RDW Plt Count MPV Absolute Neuts (auto) Neutrophils % Neutrophils % (Manual) Band Neutrophils % Lymphocytes % Lymphocytes % (Manual) Monocytes % Monocytes % (Manual) Eosinophils % Eosinophils % (Manual) Basophils % Basophils % (Manual) Myelocytes % (Man) Promyelocytes % (Man) Blast Cells % (Manual) Nucleated RBC % Metamyelocytes Hypochromia Toxic Granulation Dohle Bodies Polychromasia Poikilocytosis Basophilic Stippling Anisocytosis Microcytosis Macrocytosis Spherocytes Sickle Cells Target Cells Tear Drop Cells Ovalocytes Stomatocytes Helmet Cells [place] Bodies [place] Rings Maria R Cells Acanthocytes (Spur) Rouleaux Fragmented RBCs Schistocytes Sodium Potassium Chloride Carbon Dioxide Anion Gap BUN Creatinine Creat Clearance w eGFR POC Glucometer 163 209 Random Glucose Calcium Magnesium Total Bilirubin AST ALT Alkaline Phosphatase Total Protein Albumin Triglycerides Cancelled Cholesterol Cancelled Total LDL Cholesterol Cancelled HDL Cholesterol Cancelled TSH Cancelled Active Medications Generic Name Dose Route Start Last Admin Trade Name Freq PRN Reason Stop Dose Admin Acetaminophen 650 mg 12/23/17 04:39 12/24/17 21:26 Tylenol - PO 650 mg Q6H PRN Administration Fever Or Pain Atorvastatin Calcium 40 mg 12/23/17 22:00 12/24/17 21:25 Lipitor - PO 40 mg HS KAILEE Administration Clonidine 0.3 mg 12/24/17 22:00 12/24/17 21:25 Catapres - PO 0.3 mg BID KAILEE Administration Diphenhydramine HCl 25 mg 12/23/17 16:04 12/23/17 21:18 Benadryl - PO 25 mg Q6H PRN Administration FOR ITCHING Furosemide 20 mg 12/23/17 04:33 Lasix - PO DAILY PRN Edema Glipizide 5 mg 12/23/17 07:00 12/24/17 17:36 Glucotrol - PO 5 mg BIDAC KAILEE Administration Heparin Sodium (Porcine) 5,000 unit 12/23/17 06:00 12/24/17 21:27 Heparin - SQ 5,000 unit TID KAILEE Administration Labetalol HCl 200 mg/ 300 mg 12/23/17 10:00 12/24/17 21:26 Labetalol HCl 100 mg PO 300 mg BID KAILEE Administration Losartan Potassium 50 mg 12/24/17 11:15 12/24/17 12:12 Cozaar - PO 50 mg DAILY KAILEE Administration Metformin HCl 850 mg 12/23/17 07:00 12/24/17 17:36 Glucophage - PO 850 mg BIDAC KAILEE Administration Miscellaneous 1 each 12/23/17 22:00 12/23/17 21:14 Lidoderm Patch Removal MC Not Given DAILY@2200 [facility] Pantoprazole Sodium 40 mg 12/24/17 10:00 12/24/17 09:11 Protonix - PO 40 mg DAILY KAILEE Administration Prednisone 30 mg 12/25/17 10:00 Deltasone - PO 12/25/17 10:01 ONCE ONE Sitagliptin Phosphate 100 mg 12/23/17 07:00 12/24/17 06:22 Januvia - PO 100 mg DAILY@0700 KAILEE Administration Spironolactone 25 mg 12/24/17 17:45 12/24/17 17:46 Aldactone - PO 25 mg DAILY KAILEE Administration ASSESSMENT/PLAN: Patient is a 57 year old male with a significant past medical history of diabetes, hypertension, HLD, thyroid cancer with a partial thyroidectomy (2005), pacemaker (2011), open heart surgery for HOCM, lung surgery 2011,aortic aneurysm repair (2003), spinal surgery (1993, 2016). Patient presents to the ED for evaluation of sudden onset of swelling of the tongue, lower lip and difficulty breathing. In the ED he was given benadryl, epi, pepcid and solumedrol which resolved his symptoms. Anaphylaxis/Angioedema likely secondary to Lisinopril, resolved Patient has been on Lisinopril for numerous years, however angioedema can occur even after years of stable therapy. Lisinopril has been discontinued during hospitalization. On admission, patient was given high dose of IV steriods and antihistamines in the ED. Will convert to prednisone taper. Cardiology: HLD/Open Heart surgery/pacemaker: Echo LV systolic fx is mildly reduced. Pacemaker lead in the right ventricle, left atrium is mildly dilated. there is mild mitral annular calcifications. mild mitral regurg. mild aortic regurg.,no pericardial effusion. Hypertension: BP again elevated. Started on Cozaar 50mg, clonidine 0.3mg BID and Lasix 40mg. Also on Labetalol 300mg bid. Cardiology following. fen tolerating PO monitor electrolytes low salt diet prophy ambulation protonix full code Visit type - Emergency Visit Emergency Visit: Yes ED Registration Date: 12/23/17 Care time: The patient presented to the Emergency Department on the above date and was hospitalized for further evaluation of their emergent condition. - New Patient This patient is new to me today: No - Critical Care Critical Care patient: No - Discharge Referral Referred to [facility] Med [facility] No
[2017-12-24] MEDS: LIDOCAINE PATCH REMOVAL MC SCH (23:24)
[2017-12-25] MEDS: HEPARIN NA (PORCINE) 5,000 UNITS/ML 1ML VIAL SQ SCH (06:09)
[2017-12-25] MEDS: glipiZIDE 5 MG TABLET (FP) PO SCH (06:09)
[2017-12-25] MEDS: sitaGLIPtin PHOSPHATE 100 MG TABLET (FP) PO SCH (06:09)
[2017-12-25 06:24] LABS: BASO % 0.1 % (0-2.0); HEMATOCRIT 37.7 % (35.4-49); HEMOGLOBIN 12.6 GM/dL (11.7-16.9); LYMPH % 12.2 % (8-40); MCH 28.7 pg (25.7-33.7); MCHC 33.3 g/dl (32.0-35.9); MONO % 5.8 % (3.8-10.2); NEUT % 81.9 % (42.8-82.8); PLATELET COUNT 182 K/MM3 (134-434); RBC 4.39 M/mm3 (4.00-5.60); RDW 14.1 % (11.9-15.9); WHITE BLOOD COUNT 9.8 K/mm3 (4.0-10.0)
[2017-12-25 06:42] LABS: CHLORIDE 110 mmol/L (98-107); POTASSIUM 4.4 mmol/L (3.5-5.1); SODIUM 145 mmol/L (136-145)
[2017-12-25 06:49] LABS: ALBUMIN 3.6 g/dl (3.4-5.0); ALK PHOS 60 U/L (45-117); ANION GAP 11 (8-16); BILIRUBIN,TOTAL 0.3 mg/dL (0.2-1.0); BLOOD UREA NITROGEN 24 mg/dL (7-18); CALCIUM 8.9 mg/dL (8.5-10.1); CO2 24 mmol/L (21-32); GLUCOSE,RANDOM 109 mg/dL (74-106); MAGNESIUM 1.9 mg/dL (1.8-2.4); SGOT/AST 14 U/L (15-37); SGPT/ALT 26 U/L (12-78); TOT PROT 6.5 g/dl (6.4-8.2)
[2017-12-25] MEDS ORDERED: LOSARTAN POTASSIUM 50 MG TABLET (FP) PO SCH (07:38)
[2017-12-25] MEDS ORDERED: LABETALOL HCL 200 MG TABLET (FP) ONE (07:41)
[2017-12-25] MEDS ORDERED: LABETALOL HCL 100 MG TABLET (FP) ONE (07:41)
[2017-12-25] MEDS: PANTOPRAZOLE 40 MG TABLET (FP) PO SCH (09:02)
[2017-12-25] MEDS: LABETALOL HCL 200 MG, LABETALOL HCL 100 MG PO SCH (09:02)
[2017-12-25] MEDS: cloNIDine HCL 0.1 MG TABLET PO SCH (09:02)
[2017-12-25] MEDS: SPIRONOLACTONE 25 MG TABLET (FP) PO SCH (09:02)
[2017-12-25] MEDS ORDERED: FUROSEMIDE 20 MG TABLET (FP) PO SCH (10:00)
[2017-12-25] MEDS ORDERED: predniSONE 10 MG TABLET (UD) PO ONE (10:00)
[2017-12-25 14:21] VITALS: BP 143/90; PULSE 65; TEMP 98.4
--- NOTE | 2017-12-25 18:17 | DS ---
Physical Exam: SUBJECTIVE: Patient seen and examined at the beside. Feels well, not short of breath, swallowing well. All symptoms are resolved. Patient was to be discharged yesterday but held when is BP became elevated. OBJECTIVE: Vital Signs Period Temp Pulse Resp BP Sys/Aranda Pulse Ox Last 24 Hr 97.6 F-98.4 F 62-79 18-20 136-181/90-108 96-96 PHYSICAL EXAM GENERAL: The patient is awake, alert, and fully oriented, in no acute distress. HEAD: Normal with no signs of trauma. EYES: PERRL, extraocular movements intact, sclera anicteric, conjunctiva clear. No ptosis. ENT: Ears normal, nares patent, oropharynx clear without exudates, moist mucous membranes. NECK: Trachea midline, full range of motion, supple. LUNGS: Breath sounds equal, clear to auscultation bilaterally, no wheezes HEART: Regular rate and rhythm ABDOMEN: Soft, nontender, nondistended, normoactive bowel sounds, EXTREMITIES: +1 lower ext pitting edema NEUROLOGICAL: Normal speech, gait not observed. PSYCH: Normal mood, normal affect. SKIN: Warm, dry, normal turgor, no rashes or lesions noted LABS Laboratory Results - last 24 hr 12/25/17 12/25/17 12/25/17 05:30 05:30 05:49 WBC 9.8 RBC 4.39 Hgb 12.6 Hct 37.7 MCV 86.0 MCH 28.7 MCHC 33.3 RDW 14.1 Plt Count 182 MPV 9.0 Absolute Neuts (auto) 8.0 Neutrophils % 81.9 Lymphocytes % 12.2 D Monocytes % 5.8 D Eosinophils % 0.0 Basophils % 0.1 Nucleated RBC % 0 Sodium 145 Potassium 4.4 Chloride 110 H Carbon Dioxide 24 Anion Gap 11 BUN 24 H Creatinine 1.0 Creat Clearance w eGFR > 60 POC Glucometer 115 Random Glucose 109 H D Calcium 8.9 Magnesium 1.9 Total Bilirubin 0.3 AST 14 L ALT 26 Alkaline Phosphatase 60 D Total Protein 6.5 Albumin 3.6 12/25/17 11:31 WBC RBC Hgb Hct MCV MCH MCHC RDW Plt Count MPV Absolute Neuts (auto) Neutrophils % Lymphocytes % Monocytes % Eosinophils % Basophils % Nucleated RBC % Sodium Potassium Chloride Carbon Dioxide Anion Gap BUN Creatinine Creat Clearance w eGFR POC Glucometer 121 Random Glucose Calcium Magnesium Total Bilirubin AST ALT Alkaline Phosphatase Total Protein Albumin HOSPITAL COURSE: Date of Admission:12/23/17 Date of Discharge: 12/25/17 ASSESSMENT/PLAN: Patient is a 57 year old male with a significant past medical history of diabetes, hypertension, HLD, thyroid cancer with a partial thyroidectomy (2005), pacemaker (2011), open heart surgery for HOCM, lung surgery 2011,aortic aneurysm repair (2003), spinal surgery (1993, 2016). Patient presents to the ED for evaluation of sudden onset of swelling of the tongue, lower lip and difficulty breathing. In the ED he was given benadryl, epi, pepcid and solumedrol which resolved his symptoms. Anaphylaxis/Angioedema likely secondary to Lisinopril, resolved Patient has been on Lisinopril for numerous years, however angioedema can occur even after years of stable therapy. Lisinopril has been discontinued during hospitalization. On admission, patient was given high dose of IV steriods and antihistamines in the ED. Will convert to prednisone taper. Cardiology: HLD/Open Heart surgery/pacemaker: Echo LV systolic fx is mildly reduced. Pacemaker lead in the right ventricle, left atrium is mildly dilated. there is mild mitral annular calcifications. mild mitral regurg. mild aortic regurg.,no pericardial effusion. Hypertension: BP now stable. Will discharge on: labetelol 300mg bid, aldactone 25mg daily, clonidine 0.3mg bid, lasix 20mg daily, losartan 100mg daily. 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 full code Discharge Summary Reason For Visit: ANGIOEDEMA Condition: Guarded - Instructions Diet, Activity, Other Instructions: Mr. Del Rio: You were placed under observation at [facility] for angioedema , which we believe is from Lisinopril. Please stop taking the Lisinopril We also noted that your were hypertensive during hospitalization and have adjusted your cardiac medications. Andioedema: Stop taking lisinopril. We believe Lisinopril caused this severe reaction. We treated you with steroids and will discharge you on a steroid taper as follows: Prednisone 20mg on 12/26/2017 once in the mornin - THIS IS YOUR LAST DOSE Please come to the ER if your symptoms return : shortness of breath, face swelling Hypertension: NEW MEDICATIONS: We started you on Cozaar 100mg (Losartan) which is once per day. Continue taking Clonidine 0.3mg two times per day (morning, and at bedtime). Continue the Labetelol 300MG TWICE per day as you are doing at home. 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 Please call me with any questions that you may have Sweetie Chatterjee [employer] [phone] [facility] Referrals: Heber Mccann [Primary Care Provider] - Disposition: HOME - Home Medications Comprehensive Discharge Medication List: Ambulatory Orders Atorvastatin Calcium 40 mg PO DAILY 09/20/11 Furosemide 20 mg PO DAILY PRN 12/23/17 Glipizide 5 mg PO BID 12/23/17 Labetalol HCl 300 mg PO BID MDD 600 12/23/17 Metformin HCl 850 mg PO BID 12/23/17 Sitagliptin Phosphate [Januvia] 100 mg PO DAILY 12/23/17 Labetalol HCl [Normodyne -] 300 mg PO BID tablet 12/24/17 Pantoprazole Sodium [Protonix -] 40 mg PO DAILY #5 tablet.ec 12/24/17 Losartan Potassium [Cozaar -] 100 mg PO DAILY 30 Days #30 tablet 12/25/17 Prednisone [Deltasone] 20 mg PO DAILY #1 tablet 12/25/17 Spironolactone [Aldactone -] 25 mg PO DAILY #30 tablet 12/25/17 cloNIDine HCL [Catapres -] 0.3 mg PO BID #180 tablet 12/25/17 - Discharge Referral Referred to [facility] No
== END 2017-12-25 15:54 | disposition home or self-care (01) ==
LOC: JER 23:15 → JERBED 12-23 02:16 → UNDOADMOB 12-23 02:16 → INTOOBSV 12-23 02:16 → JERBED 12-23 02:28 → UNDOADMIN 12-23 02:28 → JERBED 12-23 04:27 → J4W 12-23 15:20
PROVIDERS: ADMIT Internal Medicine; ATTEND Nurse Practitioner Family
PROC: 3E0333Z Introduction of Anti-inflammatory into Peripheral Vein, Percutaneous Approach (ICD-10-PCS; principal; 2017-12-23)
PROC: 3E033NZ Introduction of Analgesics, Hypnotics, Sedatives into Peripheral Vein, Percutaneous Approach (ICD-10-PCS; 2017-12-23)
PROC: 3E0337Z Introduction of Electrolytic and Water Balance Substance into Peripheral Vein, Percutaneous Approach (ICD-10-PCS; 2017-12-23)
DX: T78.3XXA Angioneurotic edema, initial encounter (principal); I10 Essential (primary) hypertension; E78.5 Hyperlipidemia, unspecified; E11.9 Type 2 diabetes mellitus without complications; I42.1 Obstructive hypertrophic cardiomyopathy; Z79.84 Long term (current) use of oral hypoglycemic drugs; Z87.891 Personal history of nicotine dependence
CPT/HCPCS: 36415; 71045-TC-FY; 80048; 80053; 80061; 81003; 82550; 82553; 82962; 83721; 83735; 84100; 84443; 84484; 85025; 85027; 85610; 93005; 93010; 93306-TC; 99285-25; G0378; J0735; J1644; J7030